=== PATIENT | female | born 1930 | race Caucasian/White ===

== ENCOUNTER 2017-09-22 15:29 | Inpatient (IN) | payer MEDICARE, OTHER ==
[2017-09-22] MEDS: SOD CHLORIDE 0.9% 1,000 ML IV ×2 (18:30→22:10)
[2017-09-22 19:31] LABS: ADD MAN DIFF? NO
[2017-09-22 19:34] LABS: BASOPHILS % 0.2 % (0.0-2.0); HEMATOCRIT 46.5 % (37.0-47.0); HEMOGLOBIN 15.7 g/dl (12.0-16.0); LYMPHOCYTES % 6.1 % (15.0-51.0); MEAN CORPUSCULAR HEMOGLOBIN 32.3 pg (29.0-33.0); MEAN CORPUSCULAR HGB CONC 33.8 g/dl (32.0-37.0); MEAN CORPUSCULAR VOLUME 95.7 fl (82.0-101.0); MONOCYTE # 0.8 10^3/ul (0.3-0.9); MONOCYTES % 4.9 % (0.0-11.0); NEUTROPHIL # 14.5 10^3/ul (1.6-7.5); PLATELET COUNT 208 10^3/UL (140-415); RED BLOOD COUNT 4.86 10^6/ul (4.20-5.40)
[2017-09-22 19:34] LABS: WHITE BLOOD COUNT 16.5 10^3/ul (4.8-10.8)
[2017-09-22] MEDS: ONDANSETRON 4 MG INJ IV (19:42)
[2017-09-22 19:59] LABS: ALANINE AMINOTRANSFERASE 34 IU/L (13-69); ALBUMIN/GLOBULIN RATIO 1.11; ALKALINE PHOSPHATASE 82 IU/L (42-121); ANION GAP 15 (8-16); ASPARTATE AMINO TRANSFERASE 34 IU/L (15-46); BILIRUBIN,INDIRECT 2.1 mg/dl (0-1.1); BILIRUBIN,TOTAL 2.1 mg/dl (0.2-1.3); BLOOD UREA NITROGEN 22 mg/dl (7-20); CALCIUM 8.9 mg/dl (8.4-10.2); CARBON DIOXIDE 31 mmol/L (21-31); CHLORIDE 96 mmol/L (97-110); CREATININE 1.37 mg/dl (0.44-1.00); GLUCOSE 122 mg/dl (70-220); LIPASE 91 U/L (23-300); POTASSIUM 3.8 mmol/L (3.5-5.1); SODIUM 138 mmol/L (135-144); TOTAL PROTEIN 7.6 g/dl (6.1-8.1)
[2017-09-22 20:02] LABS: ADD UMIC YES; UR ASCORBIC ACID NEGATIVE (NEGATIVE); UR BACTERIA FEW /HPF (NONE SEEN); UR BILIRUBIN (Dip) NEGATIVE (NEGATIVE); UR BLOOD (Dip) 1+ mg/dL (NEGATIVE); UR CLARITY CLOUDY (CLEAR); UR COLOR AMBER (YELLOW); UR GLUCOSE (Dip) 1+ mg/dL (NEGATIVE); UR KETONES (Dip) NEGATIVE (NEGATIVE); UR LEUKOCYTE ESTERASE (Dip) NEGATIVE Leu/ul (NEGATIVE); UR MUCUS FEW /HPF (NONE SEEN); UR NITRITE (Dip) NEGATIVE (NEGATIVE); UR RBC 6 /HPF (0-5); UR SPECIFIC GRAVITY (Dip) 1.021 (1.003-1.030); UR SQUAMOUS EPITHELIAL CELL FEW /HPF (FEW); UR TOTAL PROTEIN (Dip) 2+ mg/dl (NEGATIVE); UR UROBILINOGEN (Dip) 2+ mg/dL (NEGATIVE); UR WBC 13 /HPF (0-5)
[2017-09-22 20:10] LABS: TROPONIN-I 0.029 ng/ml (0.00-0.12)
[2017-09-22] MEDS: CEFTRIAXONE 1 GM/50 ML (PMX) 50 ML IVPB (20:41)
[2017-09-22] MEDS ORDERED: BISACODYL (EC) 5 MG TAB PO (22:00)
[2017-09-22] MEDS ORDERED: ACETAMINOPHEN 325 MG TAB PO (22:00)
[2017-09-22] MEDS ORDERED: DOCUSATE SODIUM 100 MG CAP PO (22:00)
[2017-09-22] MEDS ORDERED: ONDANSETRON 4 MG INJ IV (22:00)
[2017-09-22] MEDS ORDERED: NACL 0.9% 3 ML SYG IV (22:00)
[2017-09-23] MEDS ORDERED: morphine 2 MG INJ IV
[2017-09-23] MEDS: D5W-0.45 NACL + KCL 20 MEQ 1,000 ML IV ×4 (00:02→22:41)
[2017-09-23] MEDS: PIPER-TAZO 2.25 GM (PMX) 50 ML IVPB ×5 (00:12→23:44)
[2017-09-23] MEDS: PANTOPRAZOLE 40 MG INJ IV (05:30)
[2017-09-23 05:56] LABS: ADD MAN DIFF? NO
[2017-09-23 05:59] LABS: WHITE BLOOD COUNT 12.3 10^3/ul (4.8-10.8)
[2017-09-23 05:59] LABS: BASOPHILS % 0.1 % (0.0-2.0); HEMATOCRIT 37.8 % (37.0-47.0); HEMOGLOBIN 12.7 g/dl (12.0-16.0); LYMPHOCYTES # 0.6 10^3/ul (0.8-2.9); LYMPHOCYTES % 5.2 % (15.0-51.0); MEAN CORPUSCULAR HEMOGLOBIN 32.4 pg (29.0-33.0); MEAN CORPUSCULAR HGB CONC 33.6 g/dl (32.0-37.0); MEAN CORPUSCULAR VOLUME 96.4 fl (82.0-101.0); MONOCYTE # 0.6 10^3/ul (0.3-0.9); MONOCYTES % 5.1 % (0.0-11.0); NEUTROPHIL # 10.9 10^3/ul (1.6-7.5); NEUTROPHILS % 89.1 % (39.0-77.0); PLATELET COUNT 158 10^3/UL (140-415); RED BLOOD COUNT 3.92 10^6/ul (4.20-5.40); RED CELL DISTRIBUTION WIDTH 13.1 % (11.5-14.5)
[2017-09-23 06:18] LABS: INR 1.23; PROTIME 15.7 Sec (11.9-14.9); PT RATIO 1.2
[2017-09-23 06:19] LABS: PARTIAL THROMBOPLASTIN TIME 40.1 Sec (25.0-35.0)
[2017-09-23] MEDS: LEVOTHYROXINE 25 MCG TAB PO (06:24)
[2017-09-23 06:35] LABS: ALANINE AMINOTRANSFERASE 30 IU/L (13-69); ALBUMIN 2.7 g/dl (3.3-4.9); ALKALINE PHOSPHATASE 58 IU/L (42-121); ANION GAP 11 (8-16); ASPARTATE AMINO TRANSFERASE 24 IU/L (15-46); BILIRUBIN,INDIRECT 0.8 mg/dl (0-1.1); BILIRUBIN,TOTAL 0.8 mg/dl (0.2-1.3); BLOOD UREA NITROGEN 18 mg/dl (7-20); CALCIUM 7.7 mg/dl (8.4-10.2); CARBON DIOXIDE 28 mmol/L (21-31); CHLORIDE 104 mmol/L (97-110); CREATININE 1.01 mg/dl (0.44-1.00); GLUCOSE 149 mg/dl (70-220); MAGNESIUM 2.1 mg/dl (1.7-2.5); POTASSIUM 4.1 mmol/L (3.5-5.1); SODIUM 139 mmol/L (135-144); TOTAL PROTEIN 5.7 g/dl (6.1-8.1)
[2017-09-23] MEDS: ENOXAPARIN 30 MG/0.3 ML SYG SC (08:54)
[2017-09-23] MEDS: CALCIUM/VITAMIN D (500/200) TAB PO (08:55)
[2017-09-23] MEDS: BENAZEPRIL 20 MG TAB PO (08:55)
[2017-09-23] MEDS: ASPIRIN (EC) 81 MG TAB PO (08:55)
[2017-09-23] MEDS ORDERED: CHOLECALCIFEROL XX (09:00)
[2017-09-23] MEDS: SOD CHLORIDE 0.9% 1,000 ML IV (11:35)
[2017-09-23 15:14] LABS: ALANINE AMINOTRANSFERASE 29 IU/L (13-69); ALBUMIN 2.7 g/dl (3.3-4.9); ALBUMIN/GLOBULIN RATIO 0.96; ALKALINE PHOSPHATASE 66 IU/L (42-121); ANION GAP 9 (8-16); ASPARTATE AMINO TRANSFERASE 23 IU/L (15-46); BILIRUBIN,INDIRECT 0.6 mg/dl (0-1.1); BILIRUBIN,TOTAL 0.6 mg/dl (0.2-1.3); BLOOD UREA NITROGEN 15 mg/dl (7-20); CALCIUM 7.7 mg/dl (8.4-10.2); CARBON DIOXIDE 27 mmol/L (21-31); CHLORIDE 106 mmol/L (97-110); CREATININE 0.97 mg/dl (0.44-1.00); GLUCOSE 147 mg/dl (70-220); SODIUM 138 mmol/L (135-144); TOTAL PROTEIN 5.5 g/dl (6.1-8.1)
[2017-09-23] MEDS ORDERED: ATORVASTATIN 20 MG TAB (19:48)
[2017-09-23] MEDS: ATORVASTATIN 20 MG TAB PO (20:41)
[2017-09-24] MEDS: PIPER-TAZO 2.25 GM (PMX) 50 ML IVPB ×3 (05:22→17:11)
[2017-09-24] MEDS: PANTOPRAZOLE 40 MG INJ IV (05:22)
[2017-09-24 05:56] LABS: ADD MAN DIFF? NO
[2017-09-24 06:07] LABS: BASOPHILS % 0.1 % (0.0-2.0); HEMATOCRIT 34.5 % (37.0-47.0); HEMOGLOBIN 11.8 g/dl (12.0-16.0); LYMPHOCYTES # 0.6 10^3/ul (0.8-2.9); LYMPHOCYTES % 5.5 % (15.0-51.0); MEAN CORPUSCULAR HEMOGLOBIN 33.3 pg (29.0-33.0); MEAN CORPUSCULAR HGB CONC 34.2 g/dl (32.0-37.0); MEAN CORPUSCULAR VOLUME 97.5 fl (82.0-101.0); MEAN PLATELET VOLUME 10.2 fl (7.4-10.4); MONOCYTE # 0.7 10^3/ul (0.3-0.9); MONOCYTES % 6.1 % (0.0-11.0); NEUTROPHIL # 9.9 10^3/ul (1.6-7.5); NEUTROPHILS % 87.6 % (39.0-77.0); PLATELET COUNT 164 10^3/UL (140-415); RED BLOOD COUNT 3.54 10^6/ul (4.20-5.40); RED CELL DISTRIBUTION WIDTH 12.9 % (11.5-14.5)
[2017-09-24 06:07] LABS: WHITE BLOOD COUNT 11.3 10^3/ul (4.8-10.8)
[2017-09-24] MEDS: LEVOTHYROXINE 25 MCG TAB PO (06:27)
[2017-09-24 06:50] LABS: ALANINE AMINOTRANSFERASE 26 IU/L (13-69); ALBUMIN 2.4 g/dl (3.3-4.9); ALBUMIN/GLOBULIN RATIO 0.88; ALKALINE PHOSPHATASE 87 IU/L (42-121); ANION GAP 9 (8-16); ASPARTATE AMINO TRANSFERASE 25 IU/L (15-46); BILIRUBIN,INDIRECT 0.5 mg/dl (0-1.1); BILIRUBIN,TOTAL 0.5 mg/dl (0.2-1.3); BLOOD UREA NITROGEN 15 mg/dl (7-20); CALCIUM 7.5 mg/dl (8.4-10.2); CARBON DIOXIDE 28 mmol/L (21-31); CHLORIDE 107 mmol/L (97-110); CREATININE 0.98 mg/dl (0.44-1.00); GLUCOSE 140 mg/dl (70-220); LIPASE 42 U/L (23-300); POTASSIUM 3.9 mmol/L (3.5-5.1); SODIUM 140 mmol/L (135-144); TOTAL PROTEIN 5.1 g/dl (6.1-8.1)
[2017-09-24] MEDS: ASPIRIN (EC) 81 MG TAB PO (09:10)
[2017-09-24] MEDS: ENOXAPARIN 30 MG/0.3 ML SYG SC (09:10)
[2017-09-24] MEDS: BENAZEPRIL 20 MG TAB PO (09:11)
[2017-09-24] MEDS: CALCIUM/VITAMIN D (500/200) TAB PO (09:11)
[2017-09-24] MEDS: D5W-0.45 NACL + KCL 20 MEQ 1,000 ML IV (12:27)
[2017-09-24] MEDS: CHOLECALCIFEROL 1,000 UNIT TAB PO (15:35)
[2017-09-24] MEDS ORDERED: MAGNESIUM HYDROXIDE 30ML CUP PO (16:00)
[2017-09-24] MEDS: MAGNESIUM HYDROXIDE 30ML CUP PO (16:31)
[2017-09-24] MEDS: ATORVASTATIN 20 MG TAB PO (19:56)
[2017-09-24] MEDS: hydrALAzine 20 MG INJ IV (19:56)
[2017-09-25] MEDS: PIPER-TAZO 2.25 GM (PMX) 50 ML IVPB ×5 (00:07→23:57)
[2017-09-25] MEDS: D5W-0.45 NACL + KCL 20 MEQ 1,000 ML IV ×3 (00:08→22:51)
[2017-09-25] MEDS: METOPROLOL 25 MG TAB PO (00:11)
[2017-09-25 06:21] LABS: ADD MAN DIFF? NO
[2017-09-25] MEDS: PANTOPRAZOLE 40 MG INJ IV (06:22)
[2017-09-25] MEDS: LEVOTHYROXINE 25 MCG TAB PO (06:22)
[2017-09-25 06:33] LABS: BASOPHILS % 0.1 % (0.0-2.0); EOSINOPHILS % 0.1 % (0.0-7.0); HEMATOCRIT 35.5 % (37.0-47.0); HEMOGLOBIN 11.8 g/dl (12.0-16.0); LYMPHOCYTES # 0.7 10^3/ul (0.8-2.9); LYMPHOCYTES % 10.6 % (15.0-51.0); MEAN CORPUSCULAR HEMOGLOBIN 31.6 pg (29.0-33.0); MEAN CORPUSCULAR HGB CONC 33.2 g/dl (32.0-37.0); MEAN CORPUSCULAR VOLUME 94.9 fl (82.0-101.0); MEAN PLATELET VOLUME 10.8 fl (7.4-10.4); MONOCYTE # 0.4 10^3/ul (0.3-0.9); MONOCYTES % 5.3 % (0.0-11.0); NEUTROPHIL # 5.8 10^3/ul (1.6-7.5); NEUTROPHILS % 83.5 % (39.0-77.0); PLATELET COUNT 155 10^3/UL (140-415); RED BLOOD COUNT 3.74 10^6/ul (4.20-5.40); RED CELL DISTRIBUTION WIDTH 12.7 % (11.5-14.5)
[2017-09-25 06:57] LABS: ALANINE AMINOTRANSFERASE 431 IU/L (13-69); ALBUMIN 2.2 g/dl (3.3-4.9); ALBUMIN/GLOBULIN RATIO 0.84; ALKALINE PHOSPHATASE 346 IU/L (42-121); ANION GAP 10 (8-16); ASPARTATE AMINO TRANSFERASE 692 IU/L (15-46); BILIRUBIN,INDIRECT 0.4 mg/dl (0-1.1); BILIRUBIN,TOTAL 1.5 mg/dl (0.2-1.3); BLOOD UREA NITROGEN 14 mg/dl (7-20); CALCIUM 7.3 mg/dl (8.4-10.2); CARBON DIOXIDE 27 mmol/L (21-31); CHLORIDE 106 mmol/L (97-110); CREATININE 0.73 mg/dl (0.44-1.00); GLUCOSE 126 mg/dl (70-220); POTASSIUM 4.3 mmol/L (3.5-5.1); SODIUM 139 mmol/L (135-144); TOTAL PROTEIN 4.8 g/dl (6.1-8.1)
[2017-09-25] MEDS ORDERED: ETOMIDATE 20 MG INJ (07:00)
[2017-09-25 07:01] LABS: POSITIVE DIFF @See below
[2017-09-25] MEDS: CALCIUM/VITAMIN D (500/200) TAB PO (09:16)
[2017-09-25] MEDS: ASPIRIN (EC) 81 MG TAB PO (09:16)
[2017-09-25] MEDS: BENAZEPRIL 20 MG TAB PO (09:17)
[2017-09-25] MEDS: CHOLECALCIFEROL 1,000 UNIT TAB PO (09:18)
[2017-09-25] MEDS: ENOXAPARIN 30 MG/0.3 ML SYG SC (09:22)
[2017-09-25] MEDS: hydrALAzine 20 MG INJ IV ×2 (14:53→22:54)
[2017-09-25 15:07] LABS: INR 0.99; PROTIME 13.2 Sec (11.9-14.9)
[2017-09-25 15:08] LABS: PARTIAL THROMBOPLASTIN TIME 35.4 Sec (25.0-35.0)
[2017-09-25] MEDS ORDERED: IOHEXOL 300MG/ML 30 ML BTL (19:25)
[2017-09-25] MEDS: INDOMETHACIN 50 MG SUPP PR (19:30)
[2017-09-25] MEDS ORDERED: FENTAnyl 50 MCG/ML VIAL (19:35)
[2017-09-25] MEDS ORDERED: PROPOFOL 20 ML (19:35)
[2017-09-25] MEDS ORDERED: LIDOCAINE 2% (SDV) 5 ML INJ (19:35)
[2017-09-25] MEDS ORDERED: ROCURONIUM 50 MG INJ (19:35)
[2017-09-25] MEDS ORDERED: PHENYLephrine (100 MCG/ML) 5ML SYG (19:49)
[2017-09-25] MEDS ORDERED: CEFAZOLIN 1 GM INJ (19:55)
[2017-09-25] MEDS ORDERED: FAMOTIDINE 20 MG INJ (20:12)
[2017-09-25] MEDS ORDERED: DEXAMETHASONE 4 MG/ML 1 ML INJ (20:12)
[2017-09-25] MEDS ORDERED: ONDANSETRON 4 MG INJ (20:12)
[2017-09-25] MEDS ORDERED: LABETALOL HCL 20MG INJ (20:12)
[2017-09-25] MEDS ORDERED: SUGAMMADEX SODIUM 200 MG/2 ML VIAL IV (20:20)
[2017-09-25 22:44] LABS: ALANINE AMINOTRANSFERASE 504 IU/L (13-69); ALBUMIN/GLOBULIN RATIO 0.96; ALKALINE PHOSPHATASE 397 IU/L (42-121); ANION GAP 15 (8-16); ASPARTATE AMINO TRANSFERASE 579 IU/L (15-46); BILIRUBIN,INDIRECT 0.4 mg/dl (0-1.1); BILIRUBIN,TOTAL 2.6 mg/dl (0.2-1.3); BLOOD UREA NITROGEN 12 mg/dl (7-20); CARBON DIOXIDE 27 mmol/L (21-31); CHLORIDE 103 mmol/L (97-110); CREATININE 0.79 mg/dl (0.44-1.00); GLUCOSE 157 mg/dl (70-220); POTASSIUM 3.8 mmol/L (3.5-5.1); SODIUM 141 mmol/L (135-144); TOTAL PROTEIN 6.1 g/dl (6.1-8.1)
[2017-09-25] MEDS: ATORVASTATIN 20 MG TAB PO (22:54)
[2017-09-26 05:58] LABS: ADD MAN DIFF? NO
[2017-09-26 06:05] LABS: ABNORMAL IP MESSAGE 1; EOSINOPHILS % 0.2 % (0.0-7.0); HEMATOCRIT 36.2 % (37.0-47.0); HEMOGLOBIN 12.4 g/dl (12.0-16.0); LYMPHOCYTES # 0.5 10^3/ul (0.8-2.9); MEAN CORPUSCULAR HEMOGLOBIN 32.3 pg (29.0-33.0); MEAN CORPUSCULAR HGB CONC 34.3 g/dl (32.0-37.0); MEAN CORPUSCULAR VOLUME 94.3 fl (82.0-101.0); MEAN PLATELET VOLUME 10.1 fl (7.4-10.4); MONOCYTE # 0.4 10^3/ul (0.3-0.9); MONOCYTES % 6.2 % (0.0-11.0); NEUTROPHIL # 5.7 10^3/ul (1.6-7.5); NEUTROPHILS % 86.3 % (39.0-77.0); PLATELET COUNT 176 10^3/UL (140-415); RED BLOOD COUNT 3.84 10^6/ul (4.20-5.40)
[2017-09-26 06:05] LABS: WHITE BLOOD COUNT 6.6 10^3/ul (4.8-10.8)
[2017-09-26] MEDS: ALENDRONATE 70 MG TAB PO (06:12)
[2017-09-26] MEDS: PANTOPRAZOLE 40 MG INJ IV (06:12)
[2017-09-26] MEDS: D5W-0.45 NACL + KCL 20 MEQ 1,000 ML IV ×2 (06:12→17:30)
[2017-09-26] MEDS: LEVOTHYROXINE 25 MCG TAB PO (06:12)
[2017-09-26] MEDS: PIPER-TAZO 2.25 GM (PMX) 50 ML IVPB ×4 (06:12→23:47)
[2017-09-26 06:19] LABS: POSITIVE DIFF @See below
[2017-09-26 06:42] LABS: ALANINE AMINOTRANSFERASE 435 IU/L (13-69); ALBUMIN 2.5 g/dl (3.3-4.9); ALKALINE PHOSPHATASE 336 IU/L (42-121); ANION GAP 14 (8-16); ASPARTATE AMINO TRANSFERASE 551 IU/L (15-46); BILIRUBIN,INDIRECT 0.4 mg/dl (0-1.1); BILIRUBIN,TOTAL 2.2 mg/dl (0.2-1.3); BLOOD UREA NITROGEN 14 mg/dl (7-20); CALCIUM 7.4 mg/dl (8.4-10.2); CARBON DIOXIDE 26 mmol/L (21-31); CHLORIDE 105 mmol/L (97-110); CREATININE 0.82 mg/dl (0.44-1.00); GLUCOSE 186 mg/dl (70-220); POTASSIUM 4.2 mmol/L (3.5-5.1); SODIUM 141 mmol/L (135-144); TOTAL PROTEIN 5.6 g/dl (6.1-8.1)
[2017-09-26] MEDS: BENAZEPRIL 20 MG TAB PO (09:14)
[2017-09-26] MEDS: hydrALAzine 20 MG INJ IV (09:14)
[2017-09-26] MEDS: ASPIRIN (EC) 81 MG TAB PO (09:15)
[2017-09-26] MEDS: CALCIUM/VITAMIN D (500/200) TAB PO (09:15)
[2017-09-26] MEDS: CHOLECALCIFEROL 1,000 UNIT TAB PO (09:15)
[2017-09-26] MEDS: ENOXAPARIN 30 MG/0.3 ML SYG SC (09:25)
[2017-09-26] MEDS: ATORVASTATIN 20 MG TAB PO (20:51)
[2017-09-27] MEDS: D5W-0.45 NACL + KCL 20 MEQ 1,000 ML IV ×3 (04:39→21:28)
[2017-09-27] MEDS: PANTOPRAZOLE 40 MG INJ IV (05:44)
[2017-09-27] MEDS: PIPER-TAZO 2.25 GM (PMX) 50 ML IVPB ×4 (05:44→23:26)
[2017-09-27 05:45] LABS: ADD MAN DIFF? NO
[2017-09-27 05:49] LABS: WHITE BLOOD COUNT 7.5 10^3/ul (4.8-10.8)
[2017-09-27 05:49] LABS: BASOPHILS % 0.1 % (0.0-2.0); EOSINOPHILS # 0.1 10^3/ul (0.0-0.5); EOSINOPHILS % 1.2 % (0.0-7.0); HEMATOCRIT 36.3 % (37.0-47.0); HEMOGLOBIN 12.4 g/dl (12.0-16.0); LYMPHOCYTES # 0.8 10^3/ul (0.8-2.9); LYMPHOCYTES % 11.1 % (15.0-51.0); MEAN CORPUSCULAR HEMOGLOBIN 32.3 pg (29.0-33.0); MEAN CORPUSCULAR HGB CONC 34.2 g/dl (32.0-37.0); MEAN CORPUSCULAR VOLUME 94.5 fl (82.0-101.0); MEAN PLATELET VOLUME 9.7 fl (7.4-10.4); MONOCYTE # 0.7 10^3/ul (0.3-0.9); MONOCYTES % 8.7 % (0.0-11.0); NEUTROPHIL # 5.9 10^3/ul (1.6-7.5); NEUTROPHILS % 78.6 % (39.0-77.0); PLATELET COUNT 216 10^3/UL (140-415); RED BLOOD COUNT 3.84 10^6/ul (4.20-5.40)
[2017-09-27] MEDS: LEVOTHYROXINE 25 MCG TAB PO (06:08)
[2017-09-27 06:18] LABS: ALANINE AMINOTRANSFERASE 280 IU/L (13-69); ALBUMIN 2.4 g/dl (3.3-4.9); ALBUMIN/GLOBULIN RATIO 0.82; ALKALINE PHOSPHATASE 298 IU/L (42-121); ANION GAP 10 (8-16); ASPARTATE AMINO TRANSFERASE 225 IU/L (15-46); BILIRUBIN,INDIRECT 0.5 mg/dl (0-1.1); BILIRUBIN,TOTAL 0.5 mg/dl (0.2-1.3); BLOOD UREA NITROGEN 13 mg/dl (7-20); CALCIUM 7.5 mg/dl (8.4-10.2); CARBON DIOXIDE 26 mmol/L (21-31); CHLORIDE 107 mmol/L (97-110); CREATININE 0.87 mg/dl (0.44-1.00); GLUCOSE 105 mg/dl (70-220); LIPASE 224 U/L (23-300); POTASSIUM 4.2 mmol/L (3.5-5.1); SODIUM 139 mmol/L (135-144); TOTAL PROTEIN 5.3 g/dl (6.1-8.1)
[2017-09-27] MEDS: ASPIRIN (EC) 81 MG TAB PO (08:32)
[2017-09-27] MEDS: CHOLECALCIFEROL 1,000 UNIT TAB PO (08:32)
[2017-09-27] MEDS: CALCIUM/VITAMIN D (500/200) TAB PO (08:32)
[2017-09-27] MEDS: BENAZEPRIL 20 MG TAB PO ×2 (08:32→20:46)
[2017-09-27] MEDS: ENOXAPARIN 30 MG/0.3 ML SYG SC (08:33)
[2017-09-27] MEDS: hydrALAzine 20 MG INJ IV ×2 (09:56→15:26)
[2017-09-27] MEDS: ATORVASTATIN 20 MG TAB PO (20:45)
[2017-09-28] MEDS: hydrALAzine 20 MG INJ IV ×2 (02:07→16:02)
[2017-09-28 05:07] LABS: ADD MAN DIFF? NO
[2017-09-28 05:20] LABS: WHITE BLOOD COUNT 6.7 10^3/ul (4.8-10.8)
[2017-09-28 05:20] LABS: BASOPHILS % 0.1 % (0.0-2.0); EOSINOPHILS # 0.1 10^3/ul (0.0-0.5); EOSINOPHILS % 1.5 % (0.0-7.0); HEMATOCRIT 37.4 % (37.0-47.0); LYMPHOCYTES # 1.3 10^3/ul (0.8-2.9); LYMPHOCYTES % 18.7 % (15.0-51.0); MEAN CORPUSCULAR HEMOGLOBIN 32.4 pg (29.0-33.0); MEAN CORPUSCULAR HGB CONC 34.8 g/dl (32.0-37.0); MEAN CORPUSCULAR VOLUME 93.3 fl (82.0-101.0); MEAN PLATELET VOLUME 9.7 fl (7.4-10.4); MONOCYTE # 0.7 10^3/ul (0.3-0.9); MONOCYTES % 11.1 % (0.0-11.0); NEUTROPHIL # 4.5 10^3/ul (1.6-7.5); PLATELET COUNT 237 10^3/UL (140-415); RED BLOOD COUNT 4.01 10^6/ul (4.20-5.40)
[2017-09-28 06:02] LABS: ALANINE AMINOTRANSFERASE 187 IU/L (13-69); ALBUMIN 2.5 g/dl (3.3-4.9); ALBUMIN/GLOBULIN RATIO 0.86; ALKALINE PHOSPHATASE 242 IU/L (42-121); ANION GAP 12 (8-16); ASPARTATE AMINO TRANSFERASE 89 IU/L (15-46); BILIRUBIN,INDIRECT 0.4 mg/dl (0-1.1); BILIRUBIN,TOTAL 0.4 mg/dl (0.2-1.3); BLOOD UREA NITROGEN 7 mg/dl (7-20); CALCIUM 7.8 mg/dl (8.4-10.2); CARBON DIOXIDE 27 mmol/L (21-31); CHLORIDE 104 mmol/L (97-110); CREATININE 0.84 mg/dl (0.44-1.00); GLUCOSE 131 mg/dl (70-220); SODIUM 139 mmol/L (135-144); TOTAL PROTEIN 5.4 g/dl (6.1-8.1)
[2017-09-28] MEDS: PIPER-TAZO 2.25 GM (PMX) 50 ML IVPB ×4 (06:16→23:44)
[2017-09-28] MEDS: LEVOTHYROXINE 25 MCG TAB PO (06:16)
[2017-09-28] MEDS: PANTOPRAZOLE 40 MG INJ IV (06:26)
[2017-09-28] MEDS: CHOLECALCIFEROL 1,000 UNIT TAB PO (09:26)
[2017-09-28] MEDS: CALCIUM/VITAMIN D (500/200) TAB PO (09:26)
[2017-09-28] MEDS: ASPIRIN (EC) 81 MG TAB PO (09:26)
[2017-09-28] MEDS: BENAZEPRIL 20 MG TAB PO ×2 (09:27→20:30)
[2017-09-28] MEDS: ENOXAPARIN 30 MG/0.3 ML SYG SC (09:28)
[2017-09-28] MEDS: D5W-0.45 NACL + KCL 20 MEQ 1,000 ML IV ×3 (09:29→23:45)
[2017-09-28] MEDS: ATORVASTATIN 20 MG TAB PO (20:30)
[2017-09-29] MEDS: PIPER-TAZO 2.25 GM (PMX) 50 ML IVPB ×4 (05:32→23:59)
[2017-09-29] MEDS: PANTOPRAZOLE 40 MG INJ IV (05:32)
[2017-09-29 06:45] LABS: ALANINE AMINOTRANSFERASE 171 IU/L (13-69); ALBUMIN 2.1 g/dl (3.3-4.9); ALBUMIN/GLOBULIN RATIO 0.84; ALKALINE PHOSPHATASE 238 IU/L (42-121); ANION GAP 10 (8-16); ASPARTATE AMINO TRANSFERASE 95 IU/L (15-46); BILIRUBIN,INDIRECT 0.5 mg/dl (0-1.1); BILIRUBIN,TOTAL 0.5 mg/dl (0.2-1.3); BLOOD UREA NITROGEN 18 mg/dl (7-20); CALCIUM 7.5 mg/dl (8.4-10.2); CARBON DIOXIDE 27 mmol/L (21-31); CHLORIDE 106 mmol/L (97-110); GLUCOSE 96 mg/dl (70-220); POTASSIUM 4.4 mmol/L (3.5-5.1); SODIUM 139 mmol/L (135-144); TOTAL PROTEIN 4.6 g/dl (6.1-8.1)
[2017-09-29] MEDS: CHOLECALCIFEROL 1,000 UNIT TAB PO (10:12)
[2017-09-29] MEDS: BENAZEPRIL 20 MG TAB PO ×2 (10:12→22:36)
[2017-09-29] MEDS: LEVOTHYROXINE 25 MCG TAB PO (10:12)
[2017-09-29] MEDS: ASPIRIN (EC) 81 MG TAB PO (10:12)
[2017-09-29] MEDS: CALCIUM/VITAMIN D (500/200) TAB PO (10:13)
[2017-09-29] MEDS: ENOXAPARIN 30 MG/0.3 ML SYG SC (10:14)
[2017-09-29] MEDS: D5W-0.45 NACL + KCL 20 MEQ 1,000 ML IV (13:34)
[2017-09-29] MEDS: ATORVASTATIN 20 MG TAB PO (22:36)
[2017-09-30] MEDS: hydrALAzine 20 MG INJ IV (01:42)
[2017-09-30] MEDS: LEVOTHYROXINE 25 MCG TAB PO (05:59)
[2017-09-30] MEDS: PANTOPRAZOLE 40 MG INJ IV (05:59)
[2017-09-30] MEDS: D5W-0.45 NACL + KCL 20 MEQ 1,000 ML IV ×2 (05:59→10:04)
[2017-09-30] MEDS: PIPER-TAZO 2.25 GM (PMX) 50 ML IVPB ×2 (06:00→11:54)
[2017-09-30 06:08] LABS: ADD MAN DIFF? NO
[2017-09-30 06:11] LABS: WHITE BLOOD COUNT 6.8 10^3/ul (4.8-10.8)
[2017-09-30 06:11] LABS: BASOPHILS % 0.3 % (0.0-2.0); EOSINOPHILS # 0.3 10^3/ul (0.0-0.5); EOSINOPHILS % 3.8 % (0.0-7.0); HEMATOCRIT 33.6 % (37.0-47.0); HEMOGLOBIN 11.4 g/dl (12.0-16.0); LYMPHOCYTES # 1.3 10^3/ul (0.8-2.9); MEAN CORPUSCULAR HGB CONC 33.9 g/dl (32.0-37.0); MEAN CORPUSCULAR VOLUME 94.4 fl (82.0-101.0); MEAN PLATELET VOLUME 9.2 fl (7.4-10.4); MONOCYTE # 0.7 10^3/ul (0.3-0.9); MONOCYTES % 10.6 % (0.0-11.0); NEUTROPHIL # 4.4 10^3/ul (1.6-7.5); NEUTROPHILS % 64.8 % (39.0-77.0); PLATELET COUNT 280 10^3/UL (140-415); RED BLOOD COUNT 3.56 10^6/ul (4.20-5.40); RED CELL DISTRIBUTION WIDTH 13.4 % (11.5-14.5)
[2017-09-30 06:30] LABS: BLOOD UREA NITROGEN 9 mg/dl (7-20); CALCIUM 8.1 mg/dl (8.4-10.2); CARBON DIOXIDE 28 mmol/L (21-31); CHLORIDE 107 mmol/L (97-110); CREATININE 0.82 mg/dl (0.44-1.00); GLUCOSE 112 mg/dl (70-220); POTASSIUM 4.4 mmol/L (3.5-5.1)
[2017-09-30 06:38] LABS: ALANINE AMINOTRANSFERASE 150 IU/L (13-69); ALBUMIN 2.6 g/dl (3.3-4.9); ALKALINE PHOSPHATASE 212 IU/L (42-121); ANION GAP 12 (8-16); ASPARTATE AMINO TRANSFERASE 68 IU/L (15-46); BILIRUBIN,INDIRECT 0.4 mg/dl (0-1.1); BILIRUBIN,TOTAL 0.4 mg/dl (0.2-1.3); BLOOD UREA NITROGEN 9 mg/dl (7-20); CALCIUM 8.1 mg/dl (8.4-10.2); CARBON DIOXIDE 27 mmol/L (21-31); CHLORIDE 107 mmol/L (97-110); CREATININE 0.84 mg/dl (0.44-1.00); GLUCOSE 114 mg/dl (70-220); POTASSIUM 4.3 mmol/L (3.5-5.1); SODIUM 142 mmol/L (135-144); TOTAL PROTEIN 5.2 g/dl (6.1-8.1)
[2017-09-30 07:09] LABS: ANION GAP 11 (8-16); SODIUM 142 mmol/L (135-144)
[2017-09-30] MEDS: CHOLECALCIFEROL 1,000 UNIT TAB PO (09:25)
[2017-09-30] MEDS: ASPIRIN (EC) 81 MG TAB PO (09:25)
[2017-09-30] MEDS: CALCIUM/VITAMIN D (500/200) TAB PO (09:25)
[2017-09-30] MEDS: BENAZEPRIL 20 MG TAB PO (09:25)
[2017-09-30] MEDS: ENOXAPARIN 30 MG/0.3 ML SYG SC (09:27)
== END 2017-09-30 18:21 | disposition home or self-care (01) | DRG 446 ==
LOC: E/R 15:29 → PP2 22:06
PROC: 0F798DZ Dilation of Common Bile Duct with Intraluminal Device, Via Natural or Artificial Opening Endoscopic (ICD-10-PCS; principal; 2017-09-25 19:35)
DX: K80.43 Calculus of bile duct with acute cholecystitis with obstruction (principal); E86.0 Dehydration; I34.0 Nonrheumatic mitral (valve) insufficiency; I10 Essential (primary) hypertension; M81.0 Age-related osteoporosis without current pathological fracture; I35.1 Nonrheumatic aortic (valve) insufficiency
CPT/HCPCS: 36415; 71045; 74176; 74181; 74330; 80048; 80053; 81001; 83690; 83735; 84443; 84484; 85025; 85610; 85730; 87086; 93005; 93306; 96374; 96375; 99285-25

== ENCOUNTER 2017-11-08 18:39 | Emergency (ER) | payer MEDICARE, OTHER ==
[2017-11-08] MEDS: AMOXICILLIN/CLAV 875 MG TAB PO (20:39)
== END 2017-11-08 20:50 | disposition home or self-care (01) ==
LOC: E/R 18:39
DX: S61.552A Open bite of left wrist, initial encounter (principal); I10 Essential (primary) hypertension; W55.01XA Bitten by cat, initial encounter; Y92.9 Unspecified place or not applicable; Z79.82 Long term (current) use of aspirin; Z85.828 Personal history of other malignant neoplasm of skin
CPT/HCPCS: 99283